=== PATIENT | male | born 1965 | race Caucasian/White ===

== ENCOUNTER → 2017-03-01 | Outpatient (CLI) | payer OTHER ==
[~2017-03-01] MED LIST: ALEVE220 M1 PO; AMBIEN 10 MG TA10 MG PO; ASA81BEC PO; CYMBALTA30 MG PO; CYMBALTA60 MG PO; GLUCOSAMINE-CH1 EA13 PO; GLYCOTROL CAPS1 EACH PO; MULTIVITAMINS1 EAC7 PO; NABUMETONE 750750 M1 PO; NORCO 5-325 TA1 EACH PO; OMEGA-31000 M1 PO; OXYCODON-ACETA1 EAC1 PO; OXYCODONE-APAP1 EAC6 PO; RELAFEN750 MG PO; TRAMADOL 50 MG50 MG PO
== END ==
LOC: CAT 08:06
DX: Z13.6 Encounter for screening for cardiovascular disorders (principal)